=== PATIENT | female | born 1985 | race Caucasian/White ===

== ENCOUNTER → 2022-12-03 | Outpatient (REF) | payer OTHER ==
[2022-12-03 18:31] LABS: BASO # 0.1 10^3/uL (0.0-0.2); BASO % 1.1 % (0.0-1.0); EOS # 0.2 10^3/uL (0.0-0.5); EOS % 3.3 % (0.0-3.0); HEMATOCRIT 40.3 % (36.0-47.0); HEMOGLOBIN 12.6 g/dl (12.0-15.5); LYMPH # 2.2 10^3/uL (1.5-5.0); LYMPH % 30.3 % (24.0-44.0); MEAN CORPUSCULAR HEMOGLOBIN 24.4 pg (27.0-33.0); MEAN CORPUSCULAR HGB CONC 31.3 g/dl (32.0-36.5); MEAN CORPUSCULAR VOLUME 78.1 fl (80.0-96.0); MONO # 0.6 10^3/uL (0.0-0.8); MONO % 8.7 % (2.0-8.0); NEUTROPHILS # 4.1 10^3/uL (1.5-8.5); PLATELET COUNT, AUTOMATED 271 10^3/uL (150-450); RED BLOOD COUNT 5.16 10^6/uL (4.00-5.40); WHITE BLOOD COUNT 7.3 10^3/uL (4.0-10.0)
[2022-12-03 18:52] LABS: ALBUMIN 4.1 G/DL (3.2-5.2); ALKALINE PHOSPHATASE 75 U/L (46-116); ALT/SGPT 16 U/L (7.0-40); AST/SGOT < 8 U/L (<34); BILIRUBIN,TOTAL 0.4 MG/DL (0.3-1.2); BLOOD UREA NITROGEN 14 MG/DL (9-23); CALCIUM LEVEL 9.1 MG/DL (8.5-10.1); CARBON DIOXIDE LEVEL 24 MMOL/L (20-31); CHLORIDE LEVEL 107 MMOL/L (98-107); CHOLESTEROL LEVEL 221 MG/DL (<200); CHOLESTEROL RISK RATIO 4.06 (<5); CREATININE FOR GFR 0.58 MG/DL (0.55-1.30); GLOMERULAR FILTRATION RATE > 60.0 (>60); GLUCOSE, FASTING 80 MG/DL (60-100); HDL CHOLESTEROL 54.4 MG/DL (>40); LDL CHOLESTEROL 139.2 MG/DL (<100); NON-HDL-C 166.6 MG/DL; POTASSIUM SERUM 4.6 MMOL/L (3.5-5.1); SODIUM LEVEL 140 MMOL/L (136-145); TOTAL PROTEIN 7.5 G/DL (5.7-8.2); TRIGLYCERIDES LEVEL 137 MG/DL (<150)
[2022-12-03 18:55] LABS: THYROID STIMULATING HORMONE 0.773 uIU/ML (0.55-4.78)
[2022-12-03 18:56] LABS: TOTAL 25(OH) VITAMIN D 21.5 NG/ML (20.0-100.0)
[2022-12-03 20:57] LABS: HEMOGLOBIN A1c 5.3 % (4.0-6.0)
== END ==
LOC: M LAB REF 16:34
PROVIDERS: ATTEND Nurse Practitioner Family
DX: Z11.9 Encounter for screening for infectious and parasitic diseases, unspecified (principal); E66.3 Overweight; E55.9 Vitamin D deficiency, unspecified; R53.83 Other fatigue

== ENCOUNTER → 2024-04-23 | Outpatient (REF) | payer OTHER | LOC: M SFHCDERM 10:43 | PROVIDERS: ATTEND Nurse Practitioner Family | DX: D23.9 Other benign neoplasm of skin, unspecified (principal) ==

== ENCOUNTER 2024-05-15 10:43 | Inpatient (IN) | payer OTHER ==
[~2024-05-15] VITALS: Ht 165.1 cm; Wt 70.0 kg
[2024-05-15] MEDS ORDERED: LORazepam 2 MG/ML 1ML VIAL IM ONE (11:05)
[2024-05-15] MEDS ORDERED: diphenhydrAMINE 50MG/ML VIAL IM ONE (11:05)
[2024-05-15] MEDS ORDERED: HALOPERIDOL LACTATE 5MG/ML VIAL IM ONE (11:05)
[2024-05-15 11:30] LABS: HEMATOCRIT 38.3 % (36.0-47.0); HEMOGLOBIN 12.5 g/dl (12.0-15.5); MEAN CORPUSCULAR HEMOGLOBIN 24.8 pg (27.0-33.0); MEAN CORPUSCULAR HGB CONC 32.6 g/dl (32.0-36.5); MEAN CORPUSCULAR VOLUME 75.8 fl (80.0-96.0); PLATELET COUNT, AUTOMATED 412 10^3/uL (150-450); RED BLOOD COUNT 5.05 10^6/uL (4.00-5.40); WHITE BLOOD COUNT 11.9 10^3/uL (4.0-10.0)
[2024-05-15 11:53] LABS: ETHYL ALCOHOL (ETHANOL) 0.003 % (0.000-0.010)
[2024-05-15 11:55] LABS: ALBUMIN 3.9 G/DL (3.2-5.2); ALKALINE PHOSPHATASE 63 U/L (35-104); ALT/SGPT 9 U/L (7.0-40); AST/SGOT < 8 U/L (<34); BILIRUBIN,DIRECT < 0.1 MG/DL (<0.4); BILIRUBIN,TOTAL 0.2 MG/DL (0.3-1.2); BLOOD UREA NITROGEN 12 MG/DL (9-23); CALCIUM LEVEL 9.4 MG/DL (8.5-10.1); CARBON DIOXIDE LEVEL 18 MMOL/L (20-31); CHLORIDE LEVEL 110 MMOL/L (98-107); CREATININE FOR GFR 0.51 MG/DL (0.55-1.30); GLOMERULAR FILTRATION RATE > 60.0 (>60); GLUCOSE, FASTING 110 MG/DL (60-100); POTASSIUM SERUM 3.9 MMOL/L (3.5-5.1); SALICYLATE LEVEL < 3.0 MG/DL (<30); SODIUM LEVEL 142 MMOL/L (136-145); TOTAL PROTEIN 7.7 G/DL (5.7-8.2)
[2024-05-15 11:56] LABS: HCG, SERUM QUALITATIVE NEGATIVE (NEGATIVE); THYROID STIMULATING HORMONE 1.717 uIU/ML (0.55-4.78)
[2024-05-15] MEDS ORDERED: LEXA1TAB2 PO (14:31)
[2024-05-15] MEDS ORDERED: HYDR-3363 PO (14:31)
[2024-05-15 14:34] LABS: AMPHETAMINES LEVEL URINE NEGATIVE (NEGATIVE); BARBITURATES URINE NEGATIVE (NEGATIVE)
[2024-05-15 14:35] LABS: BENZODIAZEPINES URINE NEGATIVE (NEGATIVE); COCAINE METABOLITE URINE NEGATIVE (NEGATIVE); METHADONE URINE NEGATIVE (NEGATIVE); PHENCYCLIDINE URINE NEGATIVE (NEGATIVE)
[2024-05-15] MEDS ORDERED: HOME MED LIST COMPLETE! XX SCH (14:35)
[2024-05-15 14:40] LABS: CANNABINOIDS URINE POSITIVE (NEGATIVE); OPIATES URINE POSITIVE (NEGATIVE)
[2024-05-15] MEDS: NS (Normal Saline) 0.9% 1,000 ML IV ONE (15:24)
[2024-05-15 17:11] LABS: BLOOD UREA NITROGEN 11 MG/DL (9-23); CARBON DIOXIDE LEVEL 24 MMOL/L (20-31); CHLORIDE LEVEL 112 MMOL/L (98-107); CREATININE FOR GFR 0.45 MG/DL (0.55-1.30); GLOMERULAR FILTRATION RATE > 60.0 (>60); GLUCOSE, FASTING 89 MG/DL (60-100); SODIUM LEVEL 144 MMOL/L (136-145)
[2024-05-15] MEDS ORDERED: MOM 30ML SUSPENSION UDC PO PRN (17:55)
[2024-05-15] MEDS ORDERED: MAALOX 30 ML SUSP *UDC PO PRN (17:55)
[2024-05-15] MEDS: NICOTINE 21MG/24HR 1 EA TRANSDERMAL TD ONE (23:33)
[2024-05-15 23:50] VITALS: BP 137/93; TEMP 97.1; O2SAT 100
[2024-05-16] MEDS: traZODone 50 MG TAB PO PRN (02:22)
[2024-05-16] MEDS: diphenhydrAMINE 25MG CAP PO PRN (02:44)
[2024-05-16] MEDS ORDERED: ESCITALOPRAM OXALATE 10 MG TAB (LEXAPRO) PO SCH (09:00)
[2024-05-16] MEDS: ACETAMINOPHEN 325 MG TAB PO PRN (10:33)
[2024-05-16 16:03] VITALS: BP 113/72; TEMP 97.6; O2SAT 97
[2024-05-16] MEDS: ESCITALOPRAM OXALATE 10 MG TAB (LEXAPRO) PO SCH (16:34)
[2024-05-16] MEDS: PRAZOSIN 1 MG CAP PO SCH (21:01)
[2024-05-17] MEDS: IBUPROFEN 400MG TAB PO PRN (03:41)
[2024-05-17 06:34] VITALS: BP 113/67; TEMP 97.3; O2SAT 97
[2024-05-17] MEDS: ARIPiprazole 2 MG TAB PO SCH (09:00)
[2024-05-17] MEDS: NICOTINE 21MG/24HR 1 EA TRANSDERMAL TD SCH (10:55)
[2024-05-17 15:49] VITALS: BP 130/86; TEMP 98.6; O2SAT 100
[2024-05-17 20:42] VITALS: BP 130/86
[2024-05-18 06:24] VITALS: BP 116/62; TEMP 97; O2SAT 97
[2024-05-18] MEDS ORDERED: TRAZ-252 PO (10:15)
[2024-05-18] MEDS ORDERED: ABIL1TAB11 PO (10:15)
[2024-05-18] MEDS ORDERED: LEXA1TAB PO (10:15)
[2024-05-18] MEDS ORDERED: PRAZ1CAP PO (10:15)
== END 2024-05-18 13:11 | disposition home or self-care (01) | DRG 753 ==
LOC: M ED 10:43 → M ED INP 17:54 → M PSY 23:50
PROVIDERS: ADMIT Psychiatry & Neurology Neurology; ATTEND Psychiatry & Neurology Psychiatry
DX: F31.81 Bipolar II disorder (principal); F41.1 Generalized anxiety disorder; R45.851 Suicidal ideations; F43.10 Post-traumatic stress disorder, unspecified; Z81.8 Family history of other mental and behavioral disorders